=== PATIENT | female | born 1990 | race Two or more races ===

== ENCOUNTER 2018-02-15 07:11 | Day surgery (SDC) | payer OTHER | END 2018-02-15 13:24 | disposition home or self-care (01) | LOC: CIR.AMB 07:11 | DX: N95.0 Postmenopausal bleeding (principal) ==

== ENCOUNTER 2022-08-13 10:40 | Emergency (ER) | payer OTHER ==
[~2022-08-13] VITALS: Ht 154.9 cm; Wt 84.4 kg
== END 2022-08-13 17:49 | disposition home or self-care (01) ==
LOC: ER 10:40
DX: O20.9 Hemorrhage in early pregnancy, unspecified (principal); Z3A.11 11 weeks gestation of pregnancy; R10.2 Pelvic and perineal pain; Z91.09 Other allergy status, other than to drugs and biological substances

== ENCOUNTER 2022-08-19 18:07 | Emergency (ER) | payer OTHER ==
[~2022-08-19] VITALS: Ht 154.9 cm; Wt 84.4 kg
== END 2022-08-19 21:01 | disposition home or self-care (01) ==
LOC: ER 18:07
DX: O20.8 Other hemorrhage in early pregnancy (principal); Z3A.01 Less than 8 weeks gestation of pregnancy; Z91.018 Allergy to other foods

== ENCOUNTER 2022-08-29 08:23 | Emergency (ER) | payer OTHER ==
[~2022-08-29] VITALS: Ht 152.4 cm; Wt 79.8 kg
[2022-08-29] MEDS ORDERED: PRENA1 TRUE CO1 EACH (08:33)
== END 2022-08-29 13:18 | disposition home or self-care (01) ==
LOC: ER 08:23
DX: O20.8 Other hemorrhage in early pregnancy (principal); Z3A.10 10 weeks gestation of pregnancy

== ENCOUNTER 2022-09-15 21:58 | Emergency (ER) | payer OTHER ==
[~2022-09-15] VITALS: Ht 152.4 cm; Wt 84.4 kg
[~2022-09-15 21:58] MED LIST: PRENA1 TRUE CO1 EACH
[2022-09-16] MEDS ORDERED: ZYRTEC10 M3 PO ×2 (06:32→06:41)
[2022-09-16] MEDS ORDERED: ZYNCOF 20-400120 ML PO (06:33)
[2022-09-16] MEDS ORDERED: CEPHALEXIN500 MG PO (06:33)
[2022-09-16] MEDS ORDERED: OSEL75CA PO (06:33)
[2022-09-16] MEDS ORDERED: PYRIDIUM DS200 MG PO (06:33)
== END 2022-09-16 06:43 ==
LOC: ER 21:58
DX: J10.1 Influenza due to other identified influenza virus with other respiratory manifestations (principal); N39.0 Urinary tract infection, site not specified; R50.9 Fever, unspecified; O20.8 Other hemorrhage in early pregnancy; Z3A.10 10 weeks gestation of pregnancy; Z20.822 Contact with and (suspected) exposure to COVID-19; Z91.048 Other nonmedicinal substance allergy status

== ENCOUNTER 2022-10-05 10:25 | Outpatient (CLI) | payer OTHER ==
[~2022-10-05 10:25] MED LIST changes: +CEPHALEXIN500 MG PO; +OSEL75CA PO; +PYRIDIUM DS200 MG PO; +ZYNCOF 20-400120 ML PO; +ZYRTEC10 M3 PO
== END 2022-10-05 11:25 | disposition home or self-care (01) ==
LOC: PRENATAL 10:25
PROVIDERS: ATTEND Obstetrics & Gynecology Maternal & Fetal Medicine
DX: O36.80X0 Pregnancy with inconclusive fetal viability, not applicable or unspecified (principal); Z36.9 Encounter for antenatal screening, unspecified; O34.219 Maternal care for unspecified type scar from previous cesarean delivery; Z3A.13 13 weeks gestation of pregnancy

== ENCOUNTER 2022-12-07 10:05 | Emergency (ER) | payer OTHER ==
[~2022-12-07] VITALS: Ht 152.4 cm; Wt 88.0 kg
[2022-12-07] MEDS ORDERED: UCERIS9 MG (10:20)
[2022-12-07] MEDS ORDERED: ALBUTEROL1.25 MG/3 (10:20)
[2022-12-07] MEDS ORDERED: TUSSIN100 MG/51 PO (14:03)
[2022-12-07] MEDS ORDERED: ZITHROMAX500 MG PO (14:03)
== END 2022-12-07 14:23 | disposition home or self-care (01) ==
LOC: ER 10:05
DX: J45.909 Unspecified asthma, uncomplicated (principal); R06.02 Shortness of breath; R53.81 Other malaise; R05.9 Cough, unspecified; I10 Essential (primary) hypertension; Z3A.22 22 weeks gestation of pregnancy; Z20.822 Contact with and (suspected) exposure to COVID-19; Z91.048 Other nonmedicinal substance allergy status

== ENCOUNTER 2023-01-31 21:50 | Outpatient (CLI) | payer OTHER ==
[~2023-01-31 21:50] MED LIST changes: +ALBUTEROL1.25 MG/3; +TUSSIN100 MG/51 PO; +UCERIS9 MG; +ZITHROMAX500 MG PO
[2023-01-31] MEDS ORDERED: LABETALOL HCL200 MG PO (22:21)
[2023-01-31 23:09] LABS: HEMATOCRIT 30.1 % (36.0-45.00); HEMOGLOBIN 9.4 g/dL (12.0-15.00); MEAN CORPUSCULAR HEMOGLOBIN 22.6 pg (27.00-32.0); MEAN CORPUSCULAR HGB CONC 31.4 g/dl (32.0-36.0); PLATELET COUNT 372 K/uL (150-450); RED BLOOD COUNT 4.18 M/uL (4.00-6.00); RED CELL DISTRIBUTION WIDTH 13.9 % (11.5-14.5)
[2023-01-31 23:14] LABS: PH,URINE 7.5 (5.0-8.0); URINE APPEARANCE Cloudy; URINE BILIRRUBIN Negative (NEGATIVE); URINE BLOOD Negative; URINE COLOR Yellow; URINE GLUCOSE Negative (NEGATIVE); URINE LEUKOCYTE Negative; URINE NITRATE Negative; URINE PROTEIN Trace (NEGATIVE)
[2023-01-31 23:17] LABS: URINE BACTERIA 3932.2 uL (0.0-1933); URINE EPITHELIAL CELLS 133.4 uL (0.0-38.8); URINE RBC 9.7 uL (0.0-20.8); URINE WBC 16.3 uL (0.0-23.2)
[2023-01-31 23:29] LABS: ALBUMIN 2.6 gm/dL (3.4-5.0); BILIRUBIN TOTAL 0.2 mg/dL (0.3-1.2); CALCIUM 8.4 mg/dL (8.5-10.1); CREATININE SERUM 0.38 mg/dL (0.55-1.02); GFR 198.85; GLOBULINA 4.2 G/DL (2.4-3.5); POTASSIUM 4.19 mEq/L (3.5-5.1); TOTAL PROTEIN 6.8 gm/dL (6.4-8.2)
== END 2023-02-01 18:24 | disposition home or self-care (01) ==
LOC: OBS/DEL 21:50
PROVIDERS: ATTEND Obstetrics & Gynecology
DX: O16.3 Unspecified maternal hypertension, third trimester (principal); O26.813 Pregnancy related exhaustion and fatigue, third trimester; R00.2 Palpitations; Z3A.30 30 weeks gestation of pregnancy

== ENCOUNTER 2023-03-07 15:04 | Outpatient (CLI) | payer OTHER ==
[~2023-03-07 15:04] MED LIST changes: +LABETALOL HCL200 MG PO
== END 2023-03-07 15:05 | disposition home or self-care (01) ==
LOC: PRENATAL 15:04
PROVIDERS: ATTEND Obstetrics & Gynecology Maternal & Fetal Medicine
DX: O26.849 Uterine size-date discrepancy, unspecified trimester (principal); O36.8199 Decreased fetal movements, unspecified trimester, other fetus; O10.019 Pre-existing essential hypertension complicating pregnancy, unspecified trimester; Z3A.35 35 weeks gestation of pregnancy

== ENCOUNTER 2023-03-22 11:13 | Outpatient (CLI) | payer OTHER | END 2023-03-22 11:15 | disposition home or self-care (01) | LOC: PRENATAL 11:13 | PROVIDERS: ATTEND Obstetrics & Gynecology Maternal & Fetal Medicine | DX: O36.8199 Decreased fetal movements, unspecified trimester, other fetus (principal); O99.210 Obesity complicating pregnancy, unspecified trimester; O10.019 Pre-existing essential hypertension complicating pregnancy, unspecified trimester; Z3A.37 37 weeks gestation of pregnancy ==

== ENCOUNTER 2023-04-03 08:36 | Inpatient (IN) | payer OTHER ==
[2023-03-31 11:00] LABS: PH,URINE 6.5 (5.0-8.0); URINE APPEARANCE Cloudy; URINE BILIRRUBIN Negative (NEGATIVE); URINE BLOOD Negative; URINE COLOR Yellow; URINE GLUCOSE Negative (NEGATIVE); URINE LEUKOCYTE Trace; URINE NITRATE Negative; URINE PROTEIN Trace (NEGATIVE)
[2023-03-31 11:05] LABS: URINE BACTERIA > 9821.5 uL (0.0-1933); URINE EPITHELIAL CELLS > 201.7 uL (0.0-38.8); URINE RBC 33.3 uL (0.0-20.8); URINE WBC 39.8 uL (0.0-23.2)
[2023-03-31 11:09] LABS: HEMATOCRIT 30.6 % (36.0-45.00); HEMOGLOBIN 9.9 g/dL (12.0-15.00); MEAN CORPUSCULAR HEMOGLOBIN 22.2 pg (27.00-32.0); MEAN CORPUSCULAR HGB CONC 32.4 g/dl (32.0-36.0); PLATELET COUNT 341 K/uL (150-450); RED BLOOD COUNT 4.47 M/uL (4.00-6.00); RED CELL DISTRIBUTION WIDTH 16.5 % (11.5-14.5)
[2023-03-31 11:13] LABS: MEAN CELL VOLUME 68.5 fL (80.00-100.00)
[2023-03-31 11:31] LABS: INR 0.95; PARTIAL THROMBOPLASTIN TIME 26.2 SECONDS (22.0-34.0)
[2023-03-31 11:36] LABS: ALBUMIN 2.6 gm/dL (3.4-5.0); BILIRUBIN TOTAL 0.27 mg/dL (0.3-1.2); CALCIUM 8.9 mg/dL (8.5-10.1); CREATININE SERUM 0.44 mg/dL (0.55-1.02); GFR 167.9; GLOBULINA 4.2 G/DL (2.4-3.5); POTASSIUM 4.14 mEq/L (3.5-5.1); TOTAL PROTEIN 6.8 gm/dL (6.4-8.2)
[~2023-04-03] VITALS: Ht 154.9 cm; Wt 3.2 kg
[~2023-04-03 08:36] MED LIST changes: +IRO-PLEX LIQUI120 ML PO
[2023-04-03 13:44] LABS: ABG PH 7.227 (7.35-7.45); ABG PO2 15.8 mmHg (80-100); ABG pCO2 55.9 mmHg (35-45); BASE EXCESS -5.6 mmol/l; BICARBONATE 22.7 mmol/l (23-25); SaO2 14.5 %; Tco2 24.4 mmol/l; o2 21 %
[2023-04-04 00:45] LABS: HEMATOCRIT 27.8 % (36.0-45.00); MEAN CORPUSCULAR HEMOGLOBIN 22.6 pg (27.00-32.0); MEAN CORPUSCULAR HGB CONC 32.5 g/dl (32.0-36.0); PLATELET COUNT 248 K/uL (150-450); RED BLOOD COUNT 4.01 M/uL (4.00-6.00); RED CELL DISTRIBUTION WIDTH 17.5 % (11.5-14.5)
[2023-04-04 00:48] LABS: HEMOGLOBIN 9.1 g/dL (12.0-15.00); MEAN CELL VOLUME 69.3 fL (80.00-100.00)
== END 2023-04-06 11:56 | disposition home or self-care (01) | DRG 785 ==
LOC: LDR 08:36 → OB/GYN 08:36 → O/R 11:34 → OB/GYN 13:55
PROVIDERS: ADMIT Obstetrics & Gynecology; ATTEND Obstetrics & Gynecology
PROC: 0UB70ZZ Excision of Bilateral Fallopian Tubes, Open Approach (ICD-10-PCS; 2023-04-03)
PROC: 4A1HXCZ Monitoring of Products of Conception, Cardiac Rate, External Approach (ICD-10-PCS; 2023-04-03)
PROC: 10D00Z1 Extraction of Products of Conception, Low, Open Approach (ICD-10-PCS; principal; 2023-04-03 14:30)
DX: O34.211 Maternal care for low transverse scar from previous cesarean delivery (principal); O99.824 Streptococcus B carrier state complicating childbirth; Z30.2 Encounter for sterilization; Z3A.39 39 weeks gestation of pregnancy; Z37.0 Single live birth; Z20.822 Contact with and (suspected) exposure to COVID-19

== ENCOUNTER → 2024-07-11 | Emergency (ER) | payer OTHER ==
[~2024-07-11] VITALS: Ht 152.4 cm; Wt 76.2 kg
== END | disposition left against medical advice (07) ==
LOC: ER 02:16
DX: Z53.21 Procedure and treatment not carried out due to patient leaving prior to being seen by health care provider (principal)